=== PATIENT | male | born 1990 | race African-American/Black ===

== ENCOUNTER 2023-03-13 19:20 | Emergency (ER) | payer OTHER ==
[~2023-03-13] VITALS: Ht 185.4 cm; Wt 98.4 kg
[2023-03-13 21:20] VITALS: BP 143/76; TEMP 99.1; O2SAT 99
== END 2023-03-13 23:14 | disposition home or self-care (01) ==
LOC: ER 19:33
DX: J06.9 Acute upper respiratory infection, unspecified (principal)